=== PATIENT | female | born 1955 | race Caucasian/White ===

== ENCOUNTER 2017-10-09 13:02 | Emergency (ER) | payer BC | END 2017-10-09 15:55 | disposition home or self-care (01) | LOC: FTE 13:02 | DX: I10 Essential (primary) hypertension (principal); R60.0 Localized edema; J44.9 Chronic obstructive pulmonary disease, unspecified; Z87.891 Personal history of nicotine dependence | CPT/HCPCS: 93005; 93970; 99284-25 ==